=== PATIENT | female | born 1990 | race Two or more races ===

== ENCOUNTER → 2019-05-23 | Emergency (ER) | payer MEDICAID ==
[~2019-05-23] VITALS: Ht 165.1 cm; Wt 61.2 kg
[~2019-05-23] MED LIST: IV NS 0.9% 1,000 ML BAG IV ONE; ONDANSETRON HCL/PF 4 MG/2 ML VIAL IVP ONE
[2019-05-23 10:12] VITALS: BP 101/67
--- NOTE | 2019-05-23 10:34 | NUR ---
PT REC'D TO ER C/O DIARRHEA AND N/V FOR 3 DAYS IV STRTED 20G LEFT HAND LABS DRAWN SENT TO LAB IV BOLUS GIVENP[ER MD
[2019-05-23 10:38] LABS: BASOPHILS % (AUTO) 0.3 % (0.0-2.0); HEMATOCRIT 46 % (33-45); HEMOGLOBIN 14.9 g/dL (11.5-14.8); LYMPHOCYTES # (AUTO) 2.1 /CMM (0.8-4.8); LYMPHOCYTES % (AUTO) 18.6 % (20.0-44.0); MEAN CORPUSCULAR HGB CONC 33 g/dl (31.0-36.0); MEAN CORPUSCULAR VOLUME 90 fL (82-100); MONOCYTES # (AUTO) 1.3 /CMM (0.1-1.30); MONOCYTES % (AUTO) 11.4 % (2.0-12.0); NEUTROPHILS # (AUTO) 7.6 /CMM (1.8-8.9); NEUTROPHILS % (AUTO) 65.7 % (43.0-81.0); PLATELET COUNT (AUTO) 261 /CMM (150-450); WHITE BLOOD COUNT (AUTO) 11.5 K/uL (4.3-11.0)
[2019-05-23 10:48] LABS: CALCIUM, SERUM 8.9 mg/dL (8.5-10.1); CREATININE 0.7 mg/dL (0.6-1.3); POTASSIUM 4.2 mmol/L (3.5-5.1)
[2019-05-23 10:52] LABS: ALBUMIN 3.9 g/dL (3.4-5.0); BILIRUBIN,DIRECT 0.2 mg/dL (0.0-0.2); BILIRUBIN,TOTAL 1.1 mg/dL (0.2-1.0); TOTAL PROTEIN, SERUM 7.6 g/dL (6.4-8.2)
== END | disposition home or self-care (01) ==
LOC: ER 10:10
DX: R11.2 Nausea with vomiting, unspecified (principal); R19.7 Diarrhea, unspecified
CPT/HCPCS: 36415; 80048; 80076; 83690; 84702; 85025; 96361; 96374; 99283; J7030